=== PATIENT | female | born 1930 | race Caucasian/White ===

== ENCOUNTER 2017-11-02 14:13 | Emergency (ER) | payer MEDICARE, OTHER ==
[2017-11-02 14:24] VITALS: BP 103/69; PULSE 72; RESP 18; TEMP 97.6; O2SAT 92
[2017-11-02 14:58] LABS: APPEARANCE,URINE Slightly Cloudy; BILIRUBIN,URINE NEGATIVE (NEGATIVE); COLOR,URINE Yellow; GLUCOSE, URINE (UA) NEGATIVE (NEGATIVE); KETONES,URINE NEGATIVE (NEGATIVE); LEUKOCYTE ESTERASE ,URINE NEGATIVE (NEGATIVE); NITRATE,URINE NEGATIVE (NEGATIVE); OCCULT BLOOD,URINE NEGATIVE (NEG-TRACE); PH,URINE 5.5; UROBILINOGEN,URINE 0.2 (0.2-1.0 EU)
[2017-11-02 15:01] LABS: BACTERIA RARE (< 1+); CRYSTALS NEGATIVE (0-3 AVE/HPF); RBC,URINE 0-2 (0-3AV/HPF); WBC,URINE 0-2 (0-5AV/HPF)
== END 2017-11-02 15:27 | disposition home or self-care (01) | DRG 696 ==
LOC: ED 14:13
DX: R35.0 Frequency of micturition (principal)
CPT/HCPCS: 81001; 99282

== ENCOUNTER 2018-04-18 14:57 | Inpatient (IN) | payer MEDICARE, OTHER ==
[2018-04-18] MEDS: ALBUTEROL/IPRATROPIUM 1 VIAL SOL INH SCH ×2 (19:39→22:44)
[2018-04-18] MEDS: FUROSEMIDE 40 MG SOL IV SCH (19:41)
[2018-04-18] MEDS ORDERED: DONEPEZIL 10 MG TAB PO SCH (21:00)
[2018-04-18] MEDS ORDERED: DONEPEZIL 5 MG 5 MG TAB ONE (21:06)
[2018-04-18] MEDS: SERTRALINE HYDROCHLORIDE 50 MG TAB PO SCH (21:39)
[2018-04-18] MEDS: CHOLECALCIFEROL 1,000 IU TAB PO SCH (21:39)
[2018-04-18] MEDS: GABAPENTIN 300 MG CAP PO SCH (21:39)
[2018-04-18] MEDS: ALLOPURINOL 100 MG TAB PO SCH (21:39)
[2018-04-18] MEDS: ASPIRIN EC 81 MG PO SCH (21:39)
[2018-04-18] MEDS ORDERED: METOPROLOL SUCCINATE 25 MG TAB.ER.24H PO ONE (22:30)
[2018-04-18] MEDS ORDERED: METOPROLOL SUCCINATE 50 MG ER TAB ONE (22:40)
[2018-04-19] MEDS: ALBUTEROL/IPRATROPIUM 1 VIAL SOL INH SCH ×4 (06:14→23:05)
[2018-04-19] MEDS: FUROSEMIDE 40 MG SOL IV SCH (06:14)
[2018-04-19] MEDS: SODIUM CHLORIDE 0.9% FLUSH 10 ML SOL IV SCH ×3 (06:26→21:06)
[2018-04-19 07:33] LABS: BASOPHILS % (AUTO) 1 % (0-3); EOSINOPHILS % (AUTO) 1 % (0-9); HEMATOCRIT 38 % (35-47); HEMOGLOBIN 11.9 gm/dl (12.0-15.5); LYMPHOCYTES % (AUTO) 8.6 % (10-50); MEAN CORPUSCULAR HEMOGLOBIN 27.8 pg (27.0-32.0); MEAN CORPUSCULAR HGB CONC 31.1 gm/dl (32.0-36.0); MEAN CORPUSCULAR VOLUME 89 fL (81-99); MONOCYTES % (AUTO) 12.5 % (0-12)
[2018-04-19 07:36] LABS: CALCIUM 8.7 mg/dl (8.5-10.1); CARBON DIOXIDE 28.1 mEq/L (21-32); CREATININE 2.13 mg/dl (0.60-1.00); POTASSIUM 3.4 mMol/L (3.5-5.1)
[2018-04-19] MEDS ORDERED: POTASSIUM CHLORIDE 10 MEQ CAPSULE PO ONE (11:30)
[2018-04-19] MEDS ORDERED: SOLUMEDROL 125 MG/2 ML 125 MG/2 ML PDS IV SCH (11:30)
[2018-04-19] MEDS ORDERED: POTASSIUM CHLORIDE 10 MEQ TER ONE (12:03)
[2018-04-19] MEDS: PREDNISONE 20 MG TAB PO SCH ×2 (12:12→20:52)
[2018-04-19] MEDS ORDERED: FUROSEMIDE 40 MG SOL IV SCH (14:00)
[2018-04-19] MEDS: MEMANTINE HYDROCHLORIDE 10 MG TAB PO SCH (20:51)
[2018-04-19] MEDS: SERTRALINE HYDROCHLORIDE 50 MG TAB PO SCH (20:51)
[2018-04-19] MEDS: DONEPEZIL 5 MG 5 MG TAB PO SCH (20:52)
[2018-04-19] MEDS: GABAPENTIN 300 MG CAP PO SCH (20:52)
[2018-04-19] MEDS: ALLOPURINOL 100 MG TAB PO SCH (20:52)
[2018-04-19] MEDS: CHOLECALCIFEROL 1,000 IU TAB PO SCH (20:52)
[2018-04-19] MEDS: ASPIRIN EC 81 MG PO SCH (20:52)
[2018-04-20] MEDS: ALBUTEROL/IPRATROPIUM 1 VIAL SOL INH SCH ×4 (05:57→22:23)
[2018-04-20] MEDS ORDERED: METOLAZONE 2.5 MG TABLET PO ONE (06:15)
[2018-04-20] MEDS ORDERED: FUROSEMIDE 40 MG TAB PO ONE (06:15)
[2018-04-20] MEDS ORDERED: POTASSIUM CHLORIDE 10 MEQ TER ONE (07:54)
[2018-04-20] MEDS: PREDNISONE 20 MG TAB PO SCH ×2 (08:22→20:51)
[2018-04-20] MEDS: POTASSIUM CHLORIDE 10 MEQ CAPSULE PO SCH (08:22)
[2018-04-20] MEDS ORDERED: ACETAMINOPHEN 500 MG 500 MG TAB PO PRN (20:44)
[2018-04-20] MEDS: SERTRALINE HYDROCHLORIDE 50 MG TAB PO SCH (20:51)
[2018-04-20] MEDS: ASPIRIN EC 81 MG PO SCH (20:51)
[2018-04-20] MEDS: ALLOPURINOL 100 MG TAB PO SCH (20:51)
[2018-04-20] MEDS: CHOLECALCIFEROL 1,000 IU TAB PO SCH (20:51)
[2018-04-20] MEDS: GABAPENTIN 300 MG CAP PO SCH (20:52)
[2018-04-20] MEDS: DONEPEZIL 5 MG 5 MG TAB PO SCH (20:52)
[2018-04-20] MEDS: MEMANTINE HYDROCHLORIDE 10 MG TAB PO SCH (20:52)
[2018-04-21] MEDS: ALBUTEROL/IPRATROPIUM 1 VIAL SOL INH SCH ×4 (04:54→22:44)
[2018-04-21 07:32] LABS: BASOPHILS % (AUTO) 0 % (0-3); EOSINOPHILS % (AUTO) 0 % (0-9); HEMATOCRIT 36 % (35-47); HEMOGLOBIN 10.8 gm/dl (12.0-15.5); MEAN CORPUSCULAR HEMOGLOBIN 27.1 pg (27.0-32.0); MEAN CORPUSCULAR VOLUME 91 fL (81-99); MONOCYTES % (AUTO) 5.7 % (0-12); NEUTROPHILS % (AUTO) 91.1 % (37-80)
[2018-04-21 07:42] LABS: CALCIUM 8.4 mg/dl (8.5-10.1); CARBON DIOXIDE 30.3 mEq/L (21-32); CREATININE 2.69 mg/dl (0.60-1.00); POTASSIUM 4.8 mMol/L (3.5-5.1)
[2018-04-21 07:43] LABS: TROP I 0.046 ng/ml (0.000-0.056)
[2018-04-21] MEDS ORDERED: FUROSEMIDE 40 MG TAB PO SCH (09:00)
[2018-04-21] MEDS: PREDNISONE 20 MG TAB PO SCH (09:10)
[2018-04-21] MEDS: POTASSIUM CHLORIDE 10 MEQ TER PO SCH (10:01)
[2018-04-21] MEDS: CALCITRIOL 0.25 MCG SGL PO SCH (12:18)
[2018-04-21] MEDS ORDERED: SODIUM CHLORIDE 0.9% 500 ML 500 ML IV ONE (15:19)
[2018-04-21] MEDS: SODIUM CHLORIDE 0.9% FLUSH 10 ML SOL IV SCH (17:05)
[2018-04-21] MEDS: MEMANTINE HYDROCHLORIDE 10 MG TAB PO SCH (21:10)
[2018-04-21] MEDS: ASPIRIN EC 81 MG PO SCH (21:10)
[2018-04-21] MEDS: GABAPENTIN 300 MG CAP PO SCH (21:11)
[2018-04-21] MEDS: CHOLECALCIFEROL 1,000 IU TAB PO SCH (21:11)
[2018-04-21] MEDS: ALLOPURINOL 100 MG TAB PO SCH (21:12)
[2018-04-21] MEDS: SERTRALINE HYDROCHLORIDE 50 MG TAB PO SCH (21:14)
[2018-04-21] MEDS: DONEPEZIL 5 MG 5 MG TAB PO SCH (21:16)
[2018-04-21] MEDS: POTASSIUM CHLORIDE 10 MEQ CAPSULE PO SCH (22:17)
[2018-04-21] MEDS ORDERED: PREDNISONE 20 MG TAB PO ONE (22:45)
[2018-04-22] MEDS: SODIUM CHLORIDE 0.9% FLUSH 10 ML SOL IV SCH ×4 (00:23→21:42)
[2018-04-22] MEDS: ALBUTEROL/IPRATROPIUM 1 VIAL SOL INH SCH ×4 (05:15→22:31)
[2018-04-22 07:19] LABS: CALCIUM 8.3 mg/dl (8.5-10.1); CARBON DIOXIDE 32.7 mEq/L (21-32); CREATININE 2.68 mg/dl (0.60-1.00); POTASSIUM 4.3 mMol/L (3.5-5.1)
[2018-04-22] MEDS: POTASSIUM CHLORIDE 10 MEQ TER PO SCH (09:39)
[2018-04-22] MEDS: PREDNISONE 20 MG TAB PO SCH (10:31)
[2018-04-22] MEDS ORDERED: ALBUTEROL NEB SOL 2.5MG/3ML 1 VIAL SOL NEB PRN (13:53)
[2018-04-22] MEDS: ASPIRIN EC 81 MG PO SCH (21:32)
[2018-04-22] MEDS: GABAPENTIN 300 MG CAP PO SCH (21:32)
[2018-04-22] MEDS: ALLOPURINOL 100 MG TAB PO SCH (21:33)
[2018-04-22] MEDS: CHOLECALCIFEROL 1,000 IU TAB PO SCH (21:33)
[2018-04-22] MEDS: SERTRALINE HYDROCHLORIDE 50 MG TAB PO SCH (21:33)
[2018-04-22] MEDS: DONEPEZIL 5 MG 5 MG TAB PO SCH (21:34)
[2018-04-22] MEDS: MEMANTINE HYDROCHLORIDE 10 MG TAB PO SCH (22:43)
[2018-04-23] MEDS: SODIUM CHLORIDE 0.9% FLUSH 10 ML SOL IV SCH ×2 (01:02→10:33)
[2018-04-23] MEDS: ALBUTEROL/IPRATROPIUM 1 VIAL SOL INH SCH ×2 (05:15→10:11)
[2018-04-23 08:32] VITALS: BP 115/66; TEMP 98.4
[2018-04-23] MEDS: POTASSIUM CHLORIDE 10 MEQ TER PO SCH (08:56)
[2018-04-23] MEDS: PREDNISONE 20 MG TAB PO SCH (08:57)
[2018-04-23] MEDS: CALCITRIOL 0.25 MCG SGL PO SCH (09:09)
[2018-04-23] MEDS ORDERED: INFLUENZA HIGH DOSE VACCINE 0.5 ML SUS IM ONE ×2 (10:19→10:23)
[2018-04-23 10:27] VITALS: PULSE 73; RESP 20; O2SAT 99
== END 2018-04-23 11:05 | disposition home health service (06) | DRG 293 ==
LOC: ACUTE CARE 15:32
PROVIDERS: ADMIT Family Medicine; ATTEND Family Medicine
PROC: F01L5ZZ Range of Motion and Joint Integrity Assessment of Musculoskeletal System - Lower Back / Lower Extremity (ICD-10-PCS; principal; 2018-04-19)
PROC: F0133ZZ Coordination/Dexterity Assessment of Neurological System - Whole Body (ICD-10-PCS; 2018-04-19)
PROC: F02Z3ZZ Grooming/Personal Hygiene Assessment (ICD-10-PCS; 2018-04-21)
PROC: F02Z1FZ Dressing Assessment using Assistive, Adaptive, Supportive or Protective Equipment (ICD-10-PCS; 2018-04-21)
DX: I50.9 Heart failure, unspecified (principal); R06.02 Shortness of breath; R05 Cough; E53.8 Deficiency of other specified B group vitamins; J98.01 Acute bronchospasm; E87.6 Hypokalemia; N18.9 Chronic kidney disease, unspecified
CPT/HCPCS: 36415; 71046; 80048; 83880; 84484; 85025; 90662; 93005; 93012; 93306; 94150; 94640; 99232; J1940; J2930; A9270; A9270-GY; G0008

== ENCOUNTER 2018-04-25 14:17 | Inpatient (IN) | payer MEDICARE, OTHER ==
[2018-04-25] MEDS ORDERED: ALBUTEROL/IPRATROPIUM 1 VIAL SOL INH ONE (14:50)
[2018-04-25] MEDS ORDERED: ALBUTEROL/IPRATROPIUM 1 VIAL SOL ONE (14:53)
[2018-04-25 14:57] LABS: BASOPHILS % (AUTO) 0 % (0-3); EOSINOPHILS % (AUTO) 0 % (0-9); HEMATOCRIT 39 % (35-47); HEMOGLOBIN 11.7 gm/dl (12.0-15.5); LYMPHOCYTES % (AUTO) 1.4 % (10-50); MEAN CORPUSCULAR HEMOGLOBIN 27.3 pg (27.0-32.0); MEAN CORPUSCULAR HGB CONC 29.7 gm/dl (32.0-36.0); MEAN CORPUSCULAR VOLUME 92 fL (81-99); MONOCYTES % (AUTO) 2.4 % (0-12)
[2018-04-25] MEDS: DILTIAZEM 5 MG/ML SOL IV ONE ×2 (15:11)
[2018-04-25] MEDS ORDERED: DILTIAZEM 5 MG/ML SOL IV ONE ×3 (15:13→20:32)
[2018-04-25 15:19] LABS: ALBUMIN 3.3 gm/dl (3.4-5.0); BILIRUBIN,TOTAL 0.5 mg/dl (0.2-1.0); CALCIUM 8.7 mg/dl (8.5-10.1); CARBON DIOXIDE 31.4 mEq/L (21-32); CREATININE 2.31 mg/dl (0.60-1.00); POTASSIUM 4.9 mMol/L (3.5-5.1); TOTAL PROTEIN 6.5 gm/dl (6.4-8.2)
[2018-04-25 15:23] LABS: TROP I 0.072 ng/ml (0.000-0.056)
[2018-04-25] MEDS ORDERED: ACETAMINOPHEN 500 MG 500 MG TAB PO PRN (19:45)
[2018-04-25] MEDS: SODIUM CHLORIDE 0.9% 1000ML 1,000 ML IV SCH (20:07)
[2018-04-25] MEDS ORDERED: SODIUM CHLORIDE 0.9% 100 ML 100 ML IV ONE (20:33)
[2018-04-25] MEDS ORDERED: DONEPEZIL 5 MG 5 MG TAB ONE (20:53)
[2018-04-25] MEDS: DILTIAZEM 5 MG/ML 125 MG in SODIUM CHLORIDE 0.9% 100 ML 100 ML IV SCH (20:55)
[2018-04-25] MEDS: SERTRALINE HYDROCHLORIDE 50 MG TAB PO SCH (20:59)
[2018-04-25] MEDS: DONEPEZIL 10 MG TAB PO SCH (20:59)
[2018-04-25] MEDS: GABAPENTIN 300 MG CAP PO SCH (21:00)
[2018-04-25] MEDS: ALBUTEROL/IPRATROPIUM 1 VIAL SOL INH SCH (21:00)
[2018-04-25] MEDS: ENOXAPARIN 80 MG SOL SC SCH (21:11)
[2018-04-26] MEDS: ALBUTEROL NEB SOL 2.5MG/3ML 1 VIAL SOL NEB PRN (02:10)
[2018-04-26] MEDS: DILTIAZEM 5 MG/ML 125 MG in SODIUM CHLORIDE 0.9% 100 ML 100 ML IV SCH (05:11)
[2018-04-26 07:41] LABS: BASOPHILS % (AUTO) 0 % (0-3); EOSINOPHILS % (AUTO) 0 % (0-9); HEMATOCRIT 36 % (35-47); HEMOGLOBIN 10.5 gm/dl (12.0-15.5); LYMPHOCYTES % (AUTO) 8.6 % (10-50); MEAN CORPUSCULAR HEMOGLOBIN 26.4 pg (27.0-32.0); MEAN CORPUSCULAR HGB CONC 29.3 gm/dl (32.0-36.0); MEAN CORPUSCULAR VOLUME 90 fL (81-99); MONOCYTES % (AUTO) 9.3 % (0-12); NEUTROPHILS % (AUTO) 81.3 % (37-80)
[2018-04-26 08:10] LABS: CALCIUM 7.9 mg/dl (8.5-10.1); CARBON DIOXIDE 29.8 mEq/L (21-32); CREATININE 2.17 mg/dl (0.60-1.00); POTASSIUM 4.8 mMol/L (3.5-5.1); TROP I 0.059 ng/ml (0.000-0.056)
[2018-04-26] MEDS ORDERED: AZITHROMYCIN 250 MG TAB PO ONE (08:22)
[2018-04-26] MEDS ORDERED: ENOXAPARIN 40 MG SOL SC SCH (09:00)
[2018-04-26] MEDS ORDERED: DILTIAZEM ER 120 MG C24 PO SCH ×2 (09:00→21:00)
[2018-04-26] MEDS: ALBUTEROL/IPRATROPIUM 1 VIAL SOL INH SCH ×4 (09:17→20:10)
[2018-04-26] MEDS: DILTIAZEM ER 120 MG C24 PO SCH (09:59)
[2018-04-26] MEDS: PREDNISONE 20 MG TAB PO SCH (09:59)
[2018-04-26] MEDS: SODIUM CHLORIDE 0.9% 1000ML 1,000 ML IV SCH (16:22)
[2018-04-26] MEDS ORDERED: WARFARIN SODIUM 6 MG TAB PO ONE (18:00)
[2018-04-26] MEDS ORDERED: DONEPEZIL 5 MG 5 MG TAB ONE (19:52)
[2018-04-26] MEDS: SODIUM CHLORIDE 0.9% FLUSH 10 ML SOL IV SCH ×2 (20:08→22:17)
[2018-04-26] MEDS: SERTRALINE HYDROCHLORIDE 50 MG TAB PO SCH (20:09)
[2018-04-26] MEDS: GABAPENTIN 300 MG CAP PO SCH (20:09)
[2018-04-26] MEDS: DONEPEZIL 10 MG TAB PO SCH (20:10)
[2018-04-26] MEDS: ENOXAPARIN 80 MG SOL SC SCH (20:11)
[2018-04-27] MEDS: SODIUM CHLORIDE 0.9% FLUSH 10 ML SOL IV SCH ×3 (05:02→20:13)
[2018-04-27 07:18] LABS: CALCIUM 8.1 mg/dl (8.5-10.1); CREATININE 2.39 mg/dl (0.60-1.00); POTASSIUM 4.1 mMol/L (3.5-5.1)
[2018-04-27 07:23] LABS: CARBON DIOXIDE 27.1 mEq/L (21-32)
[2018-04-27 07:43] LABS: INR 0.97 (0.86-1.12)
[2018-04-27] MEDS: PREDNISONE 20 MG TAB PO SCH (08:07)
[2018-04-27] MEDS: DILTIAZEM ER 120 MG C24 PO SCH (08:07)
[2018-04-27] MEDS: AZITHROMYCIN 250 MG TAB PO SCH (08:08)
[2018-04-27] MEDS: ALBUTEROL/IPRATROPIUM 1 VIAL SOL INH SCH ×4 (08:08→20:09)
[2018-04-27] MEDS: ALBUTEROL NEB SOL 2.5MG/3ML 1 VIAL SOL NEB PRN (10:01)
[2018-04-27] MEDS ORDERED: WARFARIN SODIUM 6 MG TAB PO ONE ×2 (11:15→18:00)
[2018-04-27] MEDS: BENZONATATE 200 MG SGL PO PRN ×2 (12:30→20:14)
[2018-04-27] MEDS: DONEPEZIL 10 MG TAB PO SCH (20:09)
[2018-04-27] MEDS: ENOXAPARIN 80 MG SOL SC SCH (20:10)
[2018-04-27] MEDS: GABAPENTIN 300 MG CAP PO SCH (20:12)
[2018-04-27] MEDS: SERTRALINE HYDROCHLORIDE 50 MG TAB PO SCH (20:12)
[2018-04-28] MEDS: ALBUTEROL NEB SOL 2.5MG/3ML 1 VIAL SOL NEB PRN (01:15)
[2018-04-28] MEDS: SODIUM CHLORIDE 0.9% FLUSH 10 ML SOL IV SCH ×5 (01:17→22:32)
[2018-04-28] MEDS: BENZONATATE 200 MG SGL PO PRN (02:20)
[2018-04-28] MEDS ORDERED: LIDOCAINE HCL 2% (VISCOUS) 15 ML SOL PO PRN (03:12)
[2018-04-28 07:17] LABS: ALBUMIN 2.9 gm/dl (3.4-5.0); BILIRUBIN,TOTAL 0.6 mg/dl (0.2-1.0); CARBON DIOXIDE 31.2 mEq/L (21-32); CREATININE 2.32 mg/dl (0.60-1.00); POTASSIUM 3.6 mMol/L (3.5-5.1); TOTAL PROTEIN 5.9 gm/dl (6.4-8.2)
[2018-04-28 07:24] LABS: BASOPHILS % (AUTO) 0 % (0-3); EOSINOPHILS % (AUTO) 0 % (0-9); HEMATOCRIT 33 % (35-47); HEMOGLOBIN 10.2 gm/dl (12.0-15.5); LYMPHOCYTES % (AUTO) 3.7 % (10-50); MEAN CORPUSCULAR HEMOGLOBIN 27.4 pg (27.0-32.0); MEAN CORPUSCULAR HGB CONC 30.9 gm/dl (32.0-36.0); MEAN CORPUSCULAR VOLUME 88 fL (81-99); MONOCYTES % (AUTO) 10.2 % (0-12); NEUTROPHILS % (AUTO) 85.8 % (37-80)
[2018-04-28 07:32] LABS: INR 0.98 (0.86-1.12)
[2018-04-28] MEDS: ALBUTEROL/IPRATROPIUM 1 VIAL SOL INH SCH ×4 (08:58→20:34)
[2018-04-28] MEDS: DILTIAZEM ER 120 MG C24 PO SCH (08:58)
[2018-04-28] MEDS ORDERED: PREDNISONE 20 MG TAB PO SCH (09:00)
[2018-04-28] MEDS: AZITHROMYCIN 250 MG TAB PO SCH (09:01)
[2018-04-28] MEDS ORDERED: WARFARIN SODIUM 5 MG TAB PO ONE (18:40)
[2018-04-28] MEDS: ENOXAPARIN 80 MG SOL SC SCH (20:30)
[2018-04-28] MEDS: DONEPEZIL 5 MG 5 MG TAB PO SCH (20:31)
[2018-04-28] MEDS: MEMANTINE HYDROCHLORIDE 10 MG TAB PO SCH (20:31)
[2018-04-28] MEDS: GABAPENTIN 300 MG CAP PO SCH (20:32)
[2018-04-28] MEDS: SERTRALINE HYDROCHLORIDE 50 MG TAB PO SCH (20:33)
[2018-04-29] MEDS: BENZONATATE 200 MG SGL PO PRN ×3 (01:26→21:07)
[2018-04-29] MEDS: SODIUM CHLORIDE 0.9% FLUSH 10 ML SOL IV SCH ×3 (05:59→21:07)
[2018-04-29] MEDS: ENOXAPARIN 80 MG SOL SC SCH (05:59)
[2018-04-29 07:35] LABS: INR 1.17 (0.86-1.12)
[2018-04-29] MEDS ORDERED: CYANOCOBALAMIN 1000 MCG/ML SOL IM ONE (08:59)
[2018-04-29] MEDS: ALBUTEROL/IPRATROPIUM 1 VIAL SOL INH SCH ×4 (09:15→21:06)
[2018-04-29] MEDS: PREDNISONE 20 MG TAB PO SCH (09:18)
[2018-04-29] MEDS: AZITHROMYCIN 250 MG TAB PO SCH (09:19)
[2018-04-29] MEDS: DILTIAZEM ER 120 MG C24 PO SCH (09:51)
[2018-04-29] MEDS ORDERED: METOPROLOL SUCCINATE 50 MG TER PO SCH (10:15)
[2018-04-29] MEDS ORDERED: ENOXAPARIN 80 MG SOL SC SCH (18:00)
[2018-04-29] MEDS ORDERED: WARFARIN SODIUM 5 MG TAB PO ONE (18:00)
[2018-04-29] MEDS: SERTRALINE HYDROCHLORIDE 50 MG TAB PO SCH (21:06)
[2018-04-29] MEDS: DONEPEZIL 5 MG 5 MG TAB PO SCH (21:06)
[2018-04-29] MEDS: GABAPENTIN 300 MG CAP PO SCH (21:07)
[2018-04-29] MEDS: MEMANTINE HYDROCHLORIDE 10 MG TAB PO SCH (21:07)
[2018-04-30] MEDS: SODIUM CHLORIDE 0.9% FLUSH 10 ML SOL IV SCH ×2 (06:13→16:45)
[2018-04-30 07:22] LABS: CARBON DIOXIDE 29.9 mEq/L (21-32); CREATININE 2.22 mg/dl (0.60-1.00); POTASSIUM 3.9 mMol/L (3.5-5.1)
[2018-04-30 07:40] LABS: INR 2.16 (0.86-1.12)
[2018-04-30] MEDS: ALBUTEROL/IPRATROPIUM 1 VIAL SOL INH SCH ×2 (08:56→14:50)
[2018-04-30] MEDS: PREDNISONE 20 MG TAB PO SCH (08:58)
[2018-04-30] MEDS: AZITHROMYCIN 250 MG TAB PO SCH (08:59)
[2018-04-30] MEDS ORDERED: ENOXAPARIN 80 MG SOL SC SCH (09:00)
[2018-04-30 09:01] VITALS: TEMP 97.6
[2018-04-30] MEDS: DILTIAZEM ER 120 MG C24 PO SCH (10:03)
[2018-04-30 14:59] VITALS: BP 106/74
[2018-04-30 16:46] VITALS: PULSE 103; RESP 20; O2SAT 96
== END 2018-04-30 15:20 | disposition home or self-care (01) | DRG 293 ==
LOC: ED 14:17 → UNDOADMIN 17:53 → ACUTE CARE 17:53
PROVIDERS: ADMIT Family Medicine; ATTEND Family Medicine
DX: J44.1 Chronic obstructive pulmonary disease with (acute) exacerbation (principal); I50.9 Heart failure, unspecified; J98.01 Acute bronchospasm; E87.6 Hypokalemia; N18.9 Chronic kidney disease, unspecified; I48.0 Paroxysmal atrial fibrillation; R06.02 Shortness of breath; R09.02 Hypoxemia; R09.89 Other specified symptoms and signs involving the circulatory and respiratory systems
CPT/HCPCS: 36415; 71045; 71046; 80048; 80053; 83880; 84484; 85018; 85025; 85378; 85610; 93005; 93012; 94640; 96374; 99284; 99285; J1650; J3420; J7613; A6232; A9270-GY; J3490

== ENCOUNTER 2018-05-16 11:09 | Emergency (ER) | payer MEDICARE, OTHER ==
[2018-05-16 11:40] VITALS: TEMP 97.8
[2018-05-16 11:53] LABS: INR 2.05 (0.86-1.12)
[2018-05-16 12:00] LABS: ALBUMIN 2.9 gm/dl (3.4-5.0); BILIRUBIN,TOTAL 0.8 mg/dl (0.2-1.0); CALCIUM 8.4 mg/dl (8.5-10.1); CARBON DIOXIDE 29.9 mEq/L (21-32); CREATININE 2.94 mg/dl (0.60-1.00); POTASSIUM 4.1 mMol/L (3.5-5.1); TOTAL PROTEIN 5.8 gm/dl (6.4-8.2)
[2018-05-16 12:01] LABS: HEMATOCRIT 36 % (35-47); HEMOGLOBIN 10.7 gm/dl (12.0-15.5); MEAN CORPUSCULAR HEMOGLOBIN 27.1 pg (27.0-32.0); MEAN CORPUSCULAR HGB CONC 29.6 gm/dl (32.0-36.0); MEAN CORPUSCULAR VOLUME 92 fL (81-99)
[2018-05-16 12:03] LABS: TROP I 0.074 ng/ml (0.000-0.056)
[2018-05-16] MEDS ORDERED: FUROSEMIDE 20mg SOL IV ONE (12:11)
[2018-05-16] MEDS ORDERED: FUROSEMIDE 20mg SOL ONE (12:19)
[2018-05-16 12:28] LABS: BAND NEUTROPHILS % (MANUAL) 0 %; BASOPHILS % (MANUAL) 0 % (0-3); EOSINOPHILS % (MANUAL) 0 % (0-9); LYMPHOCYTES % (MANUAL) 6 % (10-50); MONOCYTES % (MANUAL) 8 % (0-12); NEUTROPHILS % (MANUAL) 86 % (37-80); POIKILOCYTOSIS MOD AMT
[2018-05-16 12:29] LABS: OVALOCYTES PRESENT; TEAR DROP CELLS PRESENT
[2018-05-16] MEDS ORDERED: SODIUM CHLORIDE 0.9% 250 ML 250 ML IV ONE ×2 (13:18→13:53)
[2018-05-16] MEDS ORDERED: DILTIAZEM 5 MG/ML SOL IV ONE ×4 (13:20→13:51)
[2018-05-16] MEDS ORDERED: DILTIAZEM 5 MG/ML 125 MG in SODIUM CHLORIDE 0.9% 100 ML 100 ML IV SCH (13:50)
[2018-05-16 14:07] VITALS: PULSE 119
[2018-05-16] MEDS ORDERED: NOREPINEPHRINE BITARTRATE 4 MG/4 ML SOL IV ONE (14:50)
[2018-05-16] MEDS ORDERED: NOREPINEPHRINE 4 MG/4 ML 4 MG in DEXTROSE 500 ML 500 ML IV SCH (15:00)
[2018-05-16 19:13] VITALS: BP 91/70; RESP 19; O2SAT 94
== END 2018-05-16 15:03 | disposition short-term general hospital (02) | DRG 292 ==
LOC: ED 11:09
DX: I50.9 Heart failure, unspecified (principal); I13.0 Hypertensive heart and chronic kidney disease with heart failure and stage 1 through stage 4 chronic kidney disease, or unspecified chronic kidney disease; N18.9 Chronic kidney disease, unspecified; I48.0 Paroxysmal atrial fibrillation
CPT/HCPCS: 36415; 71045; 73630; 80053; 83880; 84484; 85007; 85027; 85610; 93005; 96365; 96366; 96374; 99285; 99291; J1940; J3490